=== PATIENT | male | born 1995 | race Two or more races ===

== ENCOUNTER 2018-10-22 23:10 | Emergency (ER) | payer OTHER ==
[2018-10-22 23:22] VITALS: BP 121/83
--- NOTE | 2018-10-23 02:49 | ER Document Report ---
ED General - General Chief Complaint: Rash Stated Complaint: RASH Time Seen by Provider: 10/23/18 02:43 Notes: Patient is a 23-year-old male without chronic medical problems but does report at least a one-year history of daily hives. Patient states that the areas come and go randomly. He has been taking cetirizine and tolerating without any relief. Has also used topical triamcinolone cream without any relief. Has seen a web site project manager regarding this issue, was diagnosed with having "dry skin" and had environmental allergen testing which was apparently negative. Patient states that his symptoms are quite severe, constant, prevent him from sleeping. None of the above measures have improved his symptoms. He denies any difficulty breathing, difficulty swallowing, vomiting, abdominal cramping, diarrhea, or syncope. Has never seen a [facility]. TRAVEL OUTSIDE OF THE [place] IN LAST 30 DAYS: No Past Medical History - General Information source: Patient - Social History Smoking Status: Never Smoker Frequency of alcohol use: None Drug Abuse: None Family History: Reviewed & Not Pertinent Review of Systems - Review of Systems Notes: Constitutional: Negative for fever. HENT: Negative for sore throat. Eyes: Negative for visual changes. Cardiovascular: Negative for chest pain. Respiratory: Negative for shortness of breath. Gastrointestinal: Negative for abdominal pain, vomiting or diarrhea. Genitourinary: Negative for dysuria. Musculoskeletal: Negative for back pain. Skin: Positive for rash. Neurological: Negative for headaches, weakness or numbness. 10 point ROS negative except as marked above and in HPI. Physical Exam - Vital signs Vitals: Temp Pulse Resp BP Pulse Ox 98.2 F 97 16 121/83 98 10/22/18 23:16 10/22/18 23:16 10/22/18 23:16 10/22/18 23:16 10/22/18 23:16 Interpretation: Normal Notes: PHYSICAL EXAMINATION: GENERAL: Well-appearing, well-nourished and in no acute distress. HEAD: Atraumatic, normocephalic. EYES: Pupils equal round and reactive to light, extraocular movements intact, sc toyin anicteric, conjunctiva are normal. ENT: nares patent, oropharynx clear without exudates. Moist mucous membranes. NECK: Normal range of motion, supple without lymphadenopathy LUNGS: Breath sounds clear to auscultation bilaterally and equal. No wheezes rales or rhonchi. HEART: Regular rate and rhythm without murmurs ABDOMEN: Soft, nontender, normoactive bowel sounds. No guarding, no rebound. No masses appreciated. EXTREMITIES: Normal range of motion, no pitting or edema. No cyanosis. NEUROLOGICAL: No focal neurological deficits. Moves all extremities spontaneously and on command. PSYCH: Normal mood, normal affect. SKIN: Warm, Dry, normal turgor, scattered urticaria over the bilateral forearms and upper chest Course - Re-evaluation Re-evalutation: 10/23/18 03:44 Patient presents with symptoms consistent with an recurrent hives that come and go that has been a problem for at least the past 1 year. 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 Only cutaneous involvement with multiple areas of hives. No other system involvement. Vitals otherwise within normal limits at time of arrival. No respiratory, GI, cardiovascular, or oral pharyngeal symptoms. Will recommend ongoing antihistamine therapy as an outpatient and I have started on a steroid b urst given patient's degree of symptoms. I have encouraged rheumatological follow-up at his earliest ability. At this time will discharge with return precautions and follow-up recommendations. Verbal discharge instructions given a the bedside and opportunity for questions given. Medication warnings reviewed. Patient is in agreement with this plan and has verbalized understanding of return precautions and the need for primary care follow-up in the next 24-72 hours. - Vital Signs Vital signs: Temp Pulse Resp BP Pulse Ox 98.2 F 97 16 121/83 98 10/22/18 23:16 10/22/18 23:16 10/22/18 23:16 10/22/18 23:16 10/22/18 23:16 Discharge - Discharge Clinical Impression: Idiopathic urticaria Condition: Good Disposition: HOME, SELF-CARE Additional Instructions: You were seen today for hives. This can be either allergic, autoimmune, or environmental in origin. You can continue to take cetirizine 10mg up to 4 times daily as needed for itching. Please take the prednisone as prescribed. Your symptoms to me appear most consistent with idiopathic autoimmune urticaria and you should follow-up with a [facility] for further evaluation. Please follow-up with your primary care physician in the next 1-2 days. Prescriptions: Prednisone [Deltasone 20 mg Tablet] 2 tab PO DAILY 5 Days tablet
[2018-10-23] MEDS ORDERED: PREDNISONE 20 MG TABLET PO ONE (03:42)
[2018-10-23] MEDS ORDERED: CETIRIZINE 10 MG TABLET PO ONE (03:42)
== END 2018-10-23 04:19 | disposition home or self-care (01) ==
LOC: ER 23:10
DX: L50.1 Idiopathic urticaria (principal)
CPT/HCPCS: 99282; J7512